=== PATIENT | female | born 2000 ===

== ENCOUNTER 2023-11-25 13:43 | Outpatient (CLI) | payer OTHER, SELFPAY | END 2023-11-25 13:44 | disposition home or self-care (01) | LOC: NFLDREF 11-27 09:24 | PROVIDERS: Visit Provider Physician Assistant | DX: R10.32 Left lower quadrant pain (principal) | CPT/HCPCS: 87086 ==

== ENCOUNTER 2025-02-13 10:15 | Outpatient (CLI) | payer OTHER, SELFPAY | END 2025-02-13 10:16 | disposition home or self-care (01) | LOC: FRMREF 10:26 | PROVIDERS: PCP Physician Assistant Medical; Visit Provider Physician Assistant Medical | DX: Z00.00 Encounter for general adult medical examination without abnormal findings (principal); F41.8 Other specified anxiety disorders; Z13.6 Encounter for screening for cardiovascular disorders; Z12.4 Encounter for screening for malignant neoplasm of cervix; Z13.228 Encounter for screening for other metabolic disorders | CPT/HCPCS: 80053; 80061; 84443; 87624; 87625; 88141; 88142 ==

== ENCOUNTER 2025-05-28 08:35 | Outpatient (CLI) | payer OTHER, SELFPAY | END 2025-05-28 08:36 | disposition home or self-care (01) | LOC: NFLDREF 06-01 07:51 | PROVIDERS: PCP Physician Assistant Medical; Referring Provider Physician Assistant Medical; Visit Provider Physician Assistant Medical | DX: Z11.1 Encounter for screening for respiratory tuberculosis (principal) | CPT/HCPCS: 86480 ==